=== PATIENT | female | born 1935 | race Caucasian/White ===

== ENCOUNTER 2017-01-14 10:52 | Emergency (ER) | payer OTHER ==
[~2017-01-14] VITALS: Ht 162.6 cm; Wt 86.6 kg
[2017-01-14 11:00] VITALS: BP 214/88; PULSE 57; RESP 18; TEMP 97.5; O2SAT 97
[2017-01-14] MEDS ORDERED: NOVOLOGMXP SQ ×3 (11:15→11:22)
[2017-01-14] MEDS ORDERED: ASPI81CH CHEW (11:16)
[2017-01-14] MEDS ORDERED: ATOR40TA16 PO (11:16)
--- NOTE | 2017-01-14 11:20 | PD ---
HPI Chief Complaint: Medication Refill Request Time Seen by Provider: 11:11 Travel History International Travel<30 days: No Contact w/Intl Traveler<30days: No Traveled to known affect area: No History of Present Illness HPI 81 year-old female presents to the emergency room requesting prescription for NovoLog 70/30. Patient is visiting from [place] for the winter and forgot her medication at home. She had enough left to take her last dose this morning. She denies history of hypertension and is not on any medications for hypertension. No other complaints. PFSH Past Medical History Diabetes: Yes ?: Not Social History Tobacco Use: No Allergies-Medications (Allergen,Severity, Reaction): Coded Allergies: Penicillins (Verified Allergy, Intermediate, PSYCHOSIS, 01/14/17) codeine (Verified Allergy, Intermediate, PSYCHOSIS, 01/14/17) Reported Meds & Prescriptions Reported Meds & Active Scripts Active Novolog Mix 70-30 Inj (Insulin Aspart Prota 70%/Aspart 30%) 1,000 Unit/10 Ml Vial 30 Units SQ HS Reported Aspirin 81 Mg Chew 81 Mg CHEW DAILY Atorvastatin (Atorvastatin Calcium) 40 Mg Tab 40 Mg PO HS Novolog Mix 70-30 Inj (Insulin Aspart Prota 70%/Aspart 30%) 1,000 Unit/10 Ml Vial 72 Units SQ DAILY Review of Systems Except as stated in HPI: all other systems reviewed are Neg Physical Exam Narrative GENERAL: Well-developed, well-nourished female in no acute distress. Afebrile. Ambulatory. Resting comfortably. SKIN: Focused skin assessment warm/dry. HEAD: Atraumatic. Normocephalic. EYES: Pupils equal and round. No scleral icterus. No injection or drainage. NECK: Trachea midline. No JVD. CARDIOVASCULAR: Regular rate and rhythm. No murmur appreciated. RESPIRATORY: No accessory muscle use. Clear to auscultation. Breath sounds equal bilaterally. NEUROLOGICAL: Awake and alert. No obvious cranial nerve deficits. Motor grossly within normal limits. Normal speech. PSYCHIATRIC: Appropriate mood and affect; insight and judgment normal. Data Data Last Documented VS Vital Signs Date Time Temp Pulse Resp B/P (MAP) Pulse Ox O2 Delivery O2 Flow Rate FiO2 01/14/17 11:47 213/77 (122) 01/14/17 11:00 97.5 57 18 97 Orders Orders Clonidine (Catapres) (01/14/17 12:00) [facility] Medical Decision Making Medical Screen Exam Complete: Yes Emergency Medical Condition: Yes Medical Record Reviewed: Yes Differential Diagnosis Medication refill, hypertensive urgency, diabetes Narrative Course 81-year-old female presents to the emergency room requesting medication refill. Patient left her insulin 70/30 NovoLog in [place]. She is visiting for the winter. She has a prescription being sent here from her pharmacy but is concerned she will not have it in time for today's dosages. Patient is incidentally hypertensive at 214/88 but denies any chest pain, headache, shortness of breath. Recheck is 213/77 at which time patient was given 0.1 mg clonidine. After clonidine, blood pressure came down to 140/74. Denies history of hypertension and is not on any medications. She was told to take a two-week log of her pressures and follow up with her primary care physician. She understands and agrees to plan. Diagnosis Primary Impression: Medication refill Referrals: Primary Care Physician Additional Instructions: Take medications as directed. Keep a two-week log of blood pressures taken every day at the same time to show your primary care physician. Follow-up with a primary care physician. Return to the emergency room for worsening symptoms. Scripts Insulin Aspart Protam-Asp 70-30 Inj (Novolog Mix 70-30 Inj) 1,000 Unit/10 Ml Vial 30 UNITS SQ HS for Blood Sugar Management, #10 ML 0 Refills Prov: Rosa Mora MD 01/14/17 Disposition: 01 DISCHARGE HOME Condition: Stable Belinda Gallo Jan 14, 2017 11:20
[2017-01-14 11:47] VITALS: BP 213/77
[2017-01-14] MEDS ORDERED: cloNIDine HCL 0.1 MG TAB PO ONE (12:00)
[2017-01-14 12:45] VITALS: BP 140/74
== END 2017-01-14 12:46 | disposition home or self-care (01) ==
LOC: PHEFT 10:52
DX: E11.9 Type 2 diabetes mellitus without complications (principal); Z79.899 Other long term (current) drug therapy; Z79.4 Long term (current) use of insulin
CPT/HCPCS: 99281